=== PATIENT | male | born 1960 | race Caucasian/White ===

== ENCOUNTER 2017-02-04 16:22 | Inpatient (IN) | payer OTHER ==
[2017-02-04 17:41] VITALS: BMI 46.0
--- NOTE | 2017-02-04 19:55 | HP ---
Admission ROS [facility] - [facility] Chief Complaint: I WANT TO GO TO REHAB Allergies/Adverse Reactions: Allergies Allergy/AdvReac Type Severity Reaction Status Date / Time No Known Drug Allergies Allergy Verified 02/04/17 18:40 History of Present Illness: 56 YEARS OLD MALE WITH LONG HISTORY OF HEROIN NICOTINE DEPENDENCE HAS ASTHMA ON METHADONE 110 MG PO DAILY AND BIPOLAR II IS ADMITTED TO REHAB Exam Limitations: No Limitations - Ebola screening Have you traveled outside of the country in the last 21 days: No Have you had contact with anyone from an Ebola affected area: No Have you been sick,other than usual withdrawal symptoms: No Do you have a fever: No - Review of Systems Constitutional: No Symptoms Reported EENT: reports: Blurred Vision (EYE GLASSES) Respiratory: reports: No Symptoms reported Cardiac: reports: No Symptoms Reported GI: reports: Indigestion : reports: No Symptoms Reported Musculoskeletal: reports: No Symptoms Reported Integumentary: reports: No Symptoms Reported Neuro: reports: No Symptoms reported Endocrine: reports: No Symptoms Reported Hematology: reports: No Symptoms Reported Psychiatric: reports: Judgement Intact, Mood/Affect Appropiate, Orientated x3 Other Systems: Reviewed and Negative Patient History - Patient Medical History Hx Anemia: No Hx Asthma: Yes Hx Chronic Obstructive Pulmonary Disease (COPD): No Hx Cancer: No Hx Cardiac Disorders: No Hx Congestive Heart Failure: No Hx Hypertension: No Hx Hypercholesterolemia: No Hx Pacemaker: No HX Cerebrovascular Accident: No Hx Seizures: No Hx Dementia: No Hx Diabetes: No Hx Gastrointestinal Disorders: No Hx Liver Disease: No Hx Genitourinary Disorders: No Hx Sexually Transmitted Disorders: Yes (SYPHILLIS) Hx Renal Disease (ESRD): No Hx Thyroid Disease: No Hx Human Immunodeficiency Virus (HIV): No (last 03/29/13) Hx Hepatitis C: No Hx Depression: No Hx Suicide Attempt: Yes (2014 SELF) Hx Bipolar Disorder: Yes Hx Schizophrenia: No - Patient Surgical History Past Surgical History: Yes Hx Neurologic Surgery: No Hx Cataract Extraction: No Hx Cardiac Surgery: No Hx Lung Surgery: No Hx Breast Surgery: No Hx Breast Biopsy: No Hx Abdominal Surgery: No Hx Appendectomy: No Hx Cholecystectomy: No Hx Genitourinary Surgery: No Hx Orthopedic Surgery: Yes (s/p bilateral knee replacement ,ambulation witn cane ) Anesthesia Reaction: No - PPD History Previous Implant?: Yes Documented Results: Negative w/o proof Implanted On Prior R Admission?: Yes Date: 07/28/12 Results: negative PPD to be Administered?: Yes - Smoking Cessation Smoking history: Current every day smoker Have you smoked in the past 12 months: Yes Aproximately how many cigarettes per day: 20 Cigars Per Day: 0 Hx Chewing Tobacco Use: No Initiated information on smoking cessation: Yes 'Breaking Loose' booklet given: 02/04/17 - Substance & Tx. History Hx Alcohol Use: No Hx Substance Use: Yes Substance Use Type: Opiates Hx Substance Use Treatment: Yes (2013) - Substances Abused Heroin Route: Inhalation Frequency: 3-6 times per week Amount used: 10 BAGS Age of first use: 40 Date of Last Use: 02/03/17 Family Disease History - Family Disease History Family Disease History: Heart Disease: Mother, [place]: Father Admission Physical Exam BHS - Vital Signs Vital Signs: Vital Signs - 24 hr 02/04/17 17:39 Temperature 96.2 F L Pulse Rate 111 H Respiratory 18 Rate Blood Pressure 146/94 - Physical General Appearance: Yes: No Apparent Distress, Appropriately Dressed, Obese HEENTM: Yes: Hearing grossly Normal, Normal ENT Inspection, Normocephalic, Normal Voice Respiratory: Yes: No Respiratory Distress, No Accessory Muscle Use, Wheezing, Expiration Neck: Yes: Supple, Trachea in good position Breast: Yes: Breasts Symetrical Cardiology: Yes: Regular Rhythm, S1, S2, Tachycardia Abdominal: Yes: Non Tender, Soft, Decreased BS Genitourinary: Yes: Within Normal Limits Back: Yes: Normal Inspection Musculoskeletal: Yes: full range of Motion, Gait Steady Extremities: Yes: Normal Inspection, Normal Range of Motion, Non-Tender Neurological: Yes: Fully Oriented, Alert, Motor Strength 5/5, Normal Mood/Affect , Normal Response Integumentary: Yes: Warm Lymphatic: Yes: Within Normal Limits - Diagnostic (1) Opioid dependence with withdrawal Current Visit: Yes Status: Acute (2) GERD (gastroesophageal reflux disease) Current Visit: Yes Status: Chronic Qualifiers: Esophagitis presence: without esophagitis Qualified Code(s): K21.9 - Gastro -esophageal reflux disease without esophagitis (3) Constipation Current Visit: Yes Status: Chronic Qualifiers: Constipation type: slow transit constipation Qualified Code(s): K59.01 - Slow transit constipation (4) Asthma Current Visit: Yes Status: Chronic Qualifiers: Asthma severity: moderate Asthma complication type: with status asthmaticus (5) Methadone maintenance therapy patient Current Visit: Yes Status: Chronic Comment: 110 MG PO VERIFICATION PENDING Cleared for Admission [facility] - Detox or Rehab [facility] Level of Care: Observation Bed Detox Regimen/Protocol: Not Applicable Claeared for Rehab Admission: Yes [facility] Breath Alcohol Content Breath Alcohol Content: 0 Urine Drug Screen - Results Drug Screen Negative: No Urine Drug Screen Results: OPI-Opiates, MTD-Methadone Inpatient Rehab Admission - Initial Determination Are CD services needed?: Yes Free of communicable disease: Yes Not in need of hospitalization: Yes - Rehab Admission Criteria Previous failed treatment: Yes Poor recovery environment: Yes Comorbidities: Yes Lacks judgement: No Patient is meeting Inpatient Rehab admission criteria:: Yes
[2017-02-04] MEDS ORDERED: MAGNESIUM CITRATE 300 ML BOTTLE PO PRN (19:59)
[2017-02-04] MEDS ORDERED: NICOTINE POLACRILEX 4 MG GUM BC PRN (19:59)
[2017-02-04] MEDS ORDERED: LOPERAMIDE HCL 2 MG CAPSULE PO PRN (19:59)
[2017-02-04] MEDS ORDERED: P-EPHED 60MG/TRIPROLIDI 2.5MG TABLET PO PRN (19:59)
[2017-02-04] MEDS ORDERED: MAG HYDROX/AL HYDROX/SIMETH 30 ML UNIT-DOSE CUP PO PRN (19:59)
[2017-02-04] MEDS ORDERED: TUBERCULIN PPD 5 TU/0.1ML VIAL ID ONE (21:55)
[2017-02-04] MEDS: MONTELUKAST NA 10 MG TABLET PO SCH (22:02)
[2017-02-04] MEDS: SENNOSIDES 8.6MG TABLET (FP) PO SCH (22:02)
[2017-02-04] MEDS: ALBUTEROL SO4 18 GM HFA INHALER IH SCH ×2 (22:03→23:56)
[2017-02-04] MEDS: RANITIDINE HCL 150 MG TABLET (FP) PO SCH ×2 (22:03→22:09)
[2017-02-04] MEDS: THIAMINE HCL 100 MG TABLET (FP) PO SCH (22:03)
[2017-02-04] MEDS: BUDESONIDE/FORMETEROL FUMARATE 80/4.5 mcg INHALER IH SCH (22:04)
[2017-02-05] MEDS: ALBUTEROL SO4 18 GM HFA INHALER IH SCH ×6 (06:15→23:57)
[2017-02-05] MEDS ORDERED: METHADONE HCL 10 MG TABLET PO SCH (08:00)
[2017-02-05] MEDS ORDERED: METHADONE 80 MG, METHADONE 30 MG PO ONE (08:45)
[2017-02-05] MEDS ORDERED: METHADONE HCL 10 MG TABLET ONE (08:46)
[2017-02-05] MEDS ORDERED: METHADONE HCL 40 MG DISPERSABLE TABLET ONE (08:47)
[2017-02-05] MEDS: PRENATAL VITAMINS W/ FOLIC ACID TABLET (FP) PO SCH (09:02)
[2017-02-05] MEDS: BUDESONIDE/FORMETEROL FUMARATE 80/4.5 mcg INHALER IH SCH ×2 (09:02→21:43)
[2017-02-05] MEDS: RANITIDINE HCL 150 MG TABLET (FP) PO SCH ×2 (09:02→21:44)
[2017-02-05] MEDS: NICOTINE 21 MG/24 HOURS TOPICAL PATCH TD SCH (09:04)
[2017-02-05 10:12] LABS: PH,URINE 5.5 (5.0-8.0); URINE APPEARANCE CLEAR; URINE BILIRUBIN NEGATIVE (NEGATIVE); URINE BLOOD 2+ (NEGATIVE); URINE COLOR LT. YELLOW; URINE GLUCOSE (UA) NEGATIVE (NEGATIVE); URINE KETONE NEGATIVE (NEGATIVE); URINE NITRITE NEGATIVE (NEGATIVE); URINE PROTEIN NEGATIVE (NEGATIVE); URINE UROBILINOGEN 0.2 mg/dL (0.2-1.0)
[2017-02-05 10:34] LABS: URINE HYALINE CAST 1 /lpf; URINE MUCUS RARE; URINE WBC 3 /hpf (3-5)
--- NOTE | 2017-02-05 12:47 | EKG ---
Test Reason : Blood Pressure : / mmHG Vent. Rate : 101 BPM Atrial Rate : 101 BPM P-R Int : 144 ms QRS Dur : 106 ms QT Int : 366 ms P-R-T Axes : 055 -43 041 degrees QTc Int : 474 ms SINUS TACHYCARDIA LEFT AXIS DEVIATION INCOMPLETE RIGHT BUNDLE BRANCH BLOCK ABNORMAL ECG NO PREVIOUS ECGS AVAILABLE Confirmed by SG TELLO, RAMAN ([id number]) on 02/05/2017 12:46:25 PM Referred By: SHILPA JENKINS Confirmed By:RAMAN BETTENCOURT MD
[2017-02-05 13:41] LABS: MCH 22.4 pg (25.7-33.7); MCHC 30.9 g/dl (32.0-35.9); MEAN CELL VOLUME 72.6 fl (80-96); MEAN PLT VOLUME 7.6 fl (7.5-11.1); PLATELET COUNT 287 K/MM3 (134-434); RDW 15.9 % (11.9-15.9); WHITE BLOOD COUNT 10.5 K/mm3 (4.0-10.0)
[2017-02-05 13:50] LABS: ALBUMIN 2.9 g/dl (3.4-5.0); ALK PHOS 117 U/L (45-117); ANION GAP 10 (8-16); BILIRUBIN,TOTAL 0.2 mg/dL (0.2-1.0); CO2 29 mmol/L (21-32); CREATININE 0.9 mg/dL (0.7-1.3); GLUCOSE,RANDOM 107 mg/dL (74-106); SGOT/AST 14 U/L (15-37); SGPT/ALT 24 U/L (12-78); TOT PROT 6.3 g/dl (6.4-8.2)
[2017-02-05 18:29] LABS: URINE LEUK ESTERASE Negative (NEGATIVE)
[2017-02-05] MEDS: SENNOSIDES 8.6MG TABLET (FP) PO SCH (21:43)
[2017-02-05] MEDS: THIAMINE HCL 100 MG TABLET (FP) PO SCH (21:44)
[2017-02-05] MEDS: QUEtiapine FUMARATE 300 MG TABLET PO SCH (21:44)
[2017-02-05] MEDS: MONTELUKAST NA 10 MG TABLET PO SCH (21:44)
[2017-02-06] MEDS ORDERED: METHADONE HCL 10 MG TABLET ONE (04:03)
[2017-02-06] MEDS ORDERED: METHADONE HCL 40 MG DISPERSABLE TABLET ONE (04:03)
[2017-02-06] MEDS: ALBUTEROL SO4 18 GM HFA INHALER IH SCH ×3 (04:52→11:57)
[2017-02-06] MEDS: METHADONE 80 MG, METHADONE 30 MG PO SCH (06:21)
[2017-02-06] MEDS: BUDESONIDE/FORMETEROL FUMARATE 80/4.5 mcg INHALER IH SCH ×2 (09:43→21:50)
[2017-02-06] MEDS: PRENATAL VITAMINS W/ FOLIC ACID TABLET (FP) PO SCH (09:43)
[2017-02-06] MEDS: RANITIDINE HCL 150 MG TABLET (FP) PO SCH ×2 (09:43→21:49)
[2017-02-06] MEDS: NICOTINE 21 MG/24 HOURS TOPICAL PATCH TD SCH (09:44)
--- NOTE | 2017-02-06 12:06 | PN ---
[facility] Progress Note Note: Laboratory Tests 02/05/17 02/05/17 02/05/17 08:00 10:00 10:00 WBC 10.5 H D RBC 5.13 D Hgb 11.5 L D Hct 37.3 D MCV 72.6 L MCH 22.4 L MCHC 30.9 L RDW 15.9 Plt Count 287 MPV 7.6 Sodium 145 Potassium 4.3 Chloride 106 Carbon Dioxide 29 Anion Gap 10 BUN 16 Creatinine 0.9 D Creat Clearance w eGFR > 60 Random Glucose 107 H D Calcium 9.0 Total Bilirubin 0.2 AST 14 L D ALT 24 D Alkaline Phosphatase 117 Total Protein 6.3 L Albumin 2.9 L Urine Color Lt. yellow Urine Appearance Clear Urine pH 5.5 Ur Specific [place] 1.025 Urine Protein Negative Urine Glucose (UA) Negative Urine Ketones Negative Urine Blood 2+ H Urine Nitrite Negative Urine Bilirubin Negative Urine Urobilinogen 0.2 Ur Leukocyte Esterase Negative Urine WBC (Auto) 3 Urine RBC (Auto) None Ur Epithelial Cells Rare Hyaline Casts 1 Urine Mucus Rare RPR Titer T.pallidum Ab (A) 02/05/17 10:00 WBC RBC Hgb Hct MCV MCH MCHC RDW Plt Count MPV Sodium Potassium Chloride Carbon Dioxide Anion Gap BUN Creatinine Creat Clearance w eGFR Random Glucose Calcium Total Bilirubin AST ALT Alkaline Phosphatase Total Protein Albumin Urine Color Urine Appearance Urine pH Ur Specific [place] Urine Protein Urine Glucose (UA) Urine Ketones Urine Blood Urine Nitrite Urine Bilirubin Urine Urobilinogen Ur Leukocyte Esterase Urine WBC (Auto) Urine RBC (Auto) Ur Epithelial Cells Hyaline Casts Urine Mucus RPR Titer Reactive 1:1 H T.pallidum Ab (MHA) Previously reactive note lab abnl including + rpr previously tx anemia hematouria - repeat ua
--- NOTE | 2017-02-06 13:51 | HP ---
Psychiatrist Admission - Data Date of interview: 02/06/17 Admission source: [facility] Identifying data: This is the second inpatient rehabiltation admission for this 56 year old, male, father of 3, he lives in the [place] and supported by [facility]. Medical History: Asthma and Bilateral Knee Replacement. Smokes cigarettes 1/2 PPD.On MMTP 110 mg daily. Psychiatric History: Reports first psychiatric treatment in 1978 due to depression , reports about 6-7 psychiatric hospitalizations, states most hospitalizations at [facility], most recent 2 years ago, states was diagnosed as bipolar and schizophrenia. Sees the psychiatrist at [facility] clinic and currently on Seroquel 600 mg po hs and Ambien 10 mg p hs. He reports history of suicidal attempts as overdosing with drugs, states was long time ago when his left him. He admits to hear voices on and off calling his name. Physical/Sexual Abuse/Trauma History: Patient denies history of abuse. Vital Signs: Vital Signs - 24 hr 02/06/17 02/06/17 02/06/17 00:30 03:30 06:42 Temperature 98.7 F Pulse Rate 104 H Respiratory 20 20 20 Rate Blood Pressure 108/95 Allergies/Adverse Reactions: Allergies Allergy/AdvReac Type Severity Reaction Status Date / Time No Known Drug Allergies Allergy Verified 02/04/17 18:40 Date of last physical exam: 02/04/17 Concur with the findings of this exam: Yes - Substance Abuse/Tx History Hx Alcohol Use: No Hx Substance Use: Yes Substance Use Type: Heroin (2-3 bags a day) Hx Substance Use Treatment: Yes ([facility], [facility]) Mental Status Exam - Mental Status Exam Alert and Oriented to: Time, Place, Person Cognitive Function: Good Patient Appearance: Well Groomed Mood: Hopeful Affect: Appropriate, Mood Congruent Patient Behavior: Appropriate, Cooperative Speech Pattern: Clear, Appropriate Voice Loudness: Normal Thought Process: Intact Thought Disorder: Not Present Hallucinations: Denies Suicidal Ideation: Denies Homicidal Ideation: Denies Insight/Judgement: Fair Sleep: Fair Appetite: Fair Muscle strength/Tone: Normal Psychiatric Findings - Problem List ([place] 1, 2,3) (1) Nicotine dependence Current Visit: Yes Status: Acute (2) Asthma Current Visit: Yes Status: Chronic Qualifiers: Asthma severity: moderate Asthma complication type: with status asthmaticus (3) History of total knee replacement Current Visit: No Status: Acute (4) Opioid dependence Current Visit: No Status: Acute (5) Schizoaffective disorder Current Visit: No Status: Acute - Initial Treatment Plan Initial Treatment Plan: Will continue Seroquel, will add Belsomra 10 mg po hs( side-effects benefits discussed). Monitor progress as neeed.
[2017-02-06] MEDS: ALBUTEROL SO4 18 GM HFA INHALER IH PRN (19:47)
[2017-02-06] MEDS: THIAMINE HCL 100 MG TABLET (FP) PO SCH (21:49)
[2017-02-06] MEDS: QUEtiapine FUMARATE 300 MG TABLET PO SCH (21:49)
[2017-02-06] MEDS: MONTELUKAST NA 10 MG TABLET PO SCH (21:49)
[2017-02-06] MEDS: SENNOSIDES 8.6MG TABLET (FP) PO SCH (21:49)
[2017-02-06] MEDS: SUVOREXANT 10 MG TABLET PO SCH (21:49)
[2017-02-07] MEDS ORDERED: METHADONE HCL 40 MG DISPERSABLE TABLET ONE (04:31)
[2017-02-07] MEDS ORDERED: METHADONE HCL 10 MG TABLET ONE (04:31)
[2017-02-07] MEDS: METHADONE 80 MG, METHADONE 30 MG PO SCH (06:05)
[2017-02-07] MEDS: MENTHOL/PHENOL 1 EACH UD MM PRN (06:06)
[2017-02-07] MEDS: ALBUTEROL SO4 18 GM HFA INHALER IH PRN (07:27)
[2017-02-07] MEDS: RANITIDINE HCL 150 MG TABLET (FP) PO SCH ×2 (10:13→21:30)
[2017-02-07] MEDS: PRENATAL VITAMINS W/ FOLIC ACID TABLET (FP) PO SCH (10:13)
[2017-02-07] MEDS: BUDESONIDE/FORMETEROL FUMARATE 80/4.5 mcg INHALER IH SCH ×2 (10:14→21:31)
[2017-02-07] MEDS: NICOTINE 21 MG/24 HOURS TOPICAL PATCH TD SCH (10:14)
[2017-02-07] MEDS: MAGNESIUM HYDROX 2400MG/30ML ORAL SUSPENSION 30 ML CUP PO PRN (10:16)
--- NOTE | 2017-02-07 14:50 | PN ---
[facility] Progress Note Note: c/o sore throat pt. has asthma & breath through his mouth. Vital Signs - 8 hr 02/07/17 06:59 Temperature 98.6 F Pulse Rate 98 H Respiratory 20 Rate Blood Pressure 112/65 Laboratory Tests 02/05/17 02/05/17 02/05/17 08:00 10:00 10:00 WBC 10.5 H D RBC 5.13 D Hgb 11.5 L D Hct 37.3 D MCV 72.6 L MCH 22.4 L MCHC 30.9 L RDW 15.9 Plt Count 287 MPV 7.6 Sodium 145 Potassium 4.3 Chloride 106 Carbon Dioxide 29 Anion Gap 10 BUN 16 Creatinine 0.9 D Creat Clearance w eGFR > 60 Random Glucose 107 H D Calcium 9.0 Total Bilirubin 0.2 AST 14 L D ALT 24 D Alkaline Phosphatase 117 Total Protein 6.3 L Albumin 2.9 L Urine Color Lt. yellow Urine Appearance Clear Urine pH 5.5 Ur Specific [place] 1.025 Urine Protein Negative Urine Glucose (UA) Negative Urine Ketones Negative Urine Blood 2+ H Urine Nitrite Negative Urine Bilirubin Negative Urine Urobilinogen 0.2 Ur Leukocyte Esterase Negative Urine WBC (Auto) 3 Urine RBC (Auto) None Ur Epithelial Cells Rare Hyaline Casts 1 Urine Mucus Rare RPR Titer T.pallidum Ab (MHA) 02/05/17 10:00 WBC RBC Hgb Hct MCV MCH MCHC RDW Plt Count MPV Sodium Potassium Chloride Carbon Dioxide Anion Gap BUN Creatinine Creat Clearance w eGFR Random Glucose Calcium Total Bilirubin AST ALT Alkaline Phosphatase Total Protein Albumin Urine Color Urine Appearance Urine pH Ur Specific [place] Urine Protein Urine Glucose (UA) Urine Ketones Urine Blood Urine Nitrite Urine Bilirubin Urine Urobilinogen Ur Leukocyte Esterase Urine WBC (Auto) Urine RBC (Auto) Ur Epithelial Cells Hyaline Casts Urine Mucus RPR Titer Reactive 1:1 H T.pallidum Ab (MHA) Previously reactive Lungs : B/L expiratory wheezing Dx. : Asthma P : Duoned nebulizer
[2017-02-07] MEDS: ALBUTEROL SO4 2.5/IPRATROPIUM 0.5 INH SOL 3 ML VIAL.NEB. NEB PRN (15:21)
[2017-02-07] MEDS: SENNOSIDES 8.6MG TABLET (FP) PO SCH (21:30)
[2017-02-07] MEDS: THIAMINE HCL 100 MG TABLET (FP) PO SCH (21:30)
[2017-02-07] MEDS: SUVOREXANT 10 MG TABLET PO SCH (21:30)
[2017-02-07] MEDS: MONTELUKAST NA 10 MG TABLET PO SCH (21:30)
[2017-02-07] MEDS: QUEtiapine FUMARATE 300 MG TABLET PO SCH (21:32)
[2017-02-07] MEDS: ALBUTEROL SO4 2.5/IPRATROPIUM 0.5 INH SOL 3 ML VIAL.NEB. NEB SCH (21:32)
[2017-02-07] MEDS: ACETAMINOPHEN 325 MG TABLET (FP) PO PRN (23:59)
[2017-02-08] MEDS: ACETAMINOPHEN 325 MG TABLET (FP) PO PRN ×2 (05:00→09:57)
[2017-02-08] MEDS ORDERED: METHADONE HCL 40 MG DISPERSABLE TABLET ONE (05:34)
[2017-02-08] MEDS ORDERED: METHADONE HCL 10 MG TABLET ONE (05:34)
[2017-02-08] MEDS: METHADONE 80 MG, METHADONE 30 MG PO SCH (06:20)
[2017-02-08] MEDS: ALBUTEROL SO4 2.5/IPRATROPIUM 0.5 INH SOL 3 ML VIAL.NEB. NEB SCH ×3 (09:56→23:40)
[2017-02-08] MEDS: RANITIDINE HCL 150 MG TABLET (FP) PO SCH ×2 (09:56→21:37)
[2017-02-08] MEDS: BUDESONIDE/FORMETEROL FUMARATE 80/4.5 mcg INHALER IH SCH ×2 (09:56→23:41)
[2017-02-08] MEDS: PRENATAL VITAMINS W/ FOLIC ACID TABLET (FP) PO SCH (09:56)
[2017-02-08] MEDS: NICOTINE 21 MG/24 HOURS TOPICAL PATCH TD SCH (09:56)
[2017-02-08] MEDS: MENTHOL/PHENOL 1 EACH UD MM PRN (09:58)
[2017-02-08] MEDS: NAPROXEN 500 MG TABLET (FP) PO PRN (16:00)
[2017-02-08] MEDS: SUVOREXANT 10 MG TABLET PO SCH (21:35)
[2017-02-08] MEDS: MONTELUKAST NA 10 MG TABLET PO SCH (21:36)
[2017-02-08] MEDS: SENNOSIDES 8.6MG TABLET (FP) PO SCH (21:36)
[2017-02-08] MEDS: QUEtiapine FUMARATE 300 MG TABLET PO SCH (21:37)
[2017-02-08] MEDS: THIAMINE HCL 100 MG TABLET (FP) PO SCH (21:37)
[2017-02-09] MEDS ORDERED: METHADONE HCL 10 MG TABLET ONE (03:55)
[2017-02-09] MEDS ORDERED: METHADONE HCL 40 MG DISPERSABLE TABLET ONE (03:55)
[2017-02-09] MEDS: METHADONE 80 MG, METHADONE 30 MG PO SCH (06:18)
[2017-02-09] MEDS: BUDESONIDE/FORMETEROL FUMARATE 80/4.5 mcg INHALER IH SCH ×2 (10:13→22:13)
[2017-02-09] MEDS: PRENATAL VITAMINS W/ FOLIC ACID TABLET (FP) PO SCH (10:14)
[2017-02-09] MEDS: NICOTINE 21 MG/24 HOURS TOPICAL PATCH TD SCH (10:14)
[2017-02-09] MEDS: RANITIDINE HCL 150 MG TABLET (FP) PO SCH ×2 (10:14→22:15)
[2017-02-09] MEDS: ALBUTEROL SO4 2.5/IPRATROPIUM 0.5 INH SOL 3 ML VIAL.NEB. NEB SCH ×4 (10:14→22:14)
[2017-02-09] MEDS: ALBUTEROL SO4 18 GM HFA INHALER IH PRN ×2 (10:15→22:13)
[2017-02-09] MEDS: ACETAMINOPHEN 325 MG TABLET (FP) PO PRN (16:59)
[2017-02-09] MEDS: SENNOSIDES 8.6MG TABLET (FP) PO SCH (22:14)
[2017-02-09] MEDS: MONTELUKAST NA 10 MG TABLET PO SCH (22:14)
[2017-02-09] MEDS: THIAMINE HCL 100 MG TABLET (FP) PO SCH (22:14)
[2017-02-09] MEDS: SUVOREXANT 10 MG TABLET PO SCH (22:14)
[2017-02-09] MEDS: QUEtiapine FUMARATE 300 MG TABLET PO SCH (22:14)
[2017-02-10] MEDS: ALBUTEROL SO4 2.5/IPRATROPIUM 0.5 INH SOL 3 ML VIAL.NEB. NEB PRN (00:25)
[2017-02-10] MEDS ORDERED: METHADONE HCL 40 MG DISPERSABLE TABLET ONE (04:12)
[2017-02-10] MEDS ORDERED: METHADONE HCL 10 MG TABLET ONE (04:12)
[2017-02-10] MEDS: METHADONE 80 MG, METHADONE 30 MG PO SCH (06:11)
[2017-02-10] MEDS: ACETAMINOPHEN 325 MG TABLET (FP) PO PRN (07:36)
[2017-02-10] MEDS: PRENATAL VITAMINS W/ FOLIC ACID TABLET (FP) PO SCH (10:11)
[2017-02-10] MEDS: RANITIDINE HCL 150 MG TABLET (FP) PO SCH ×2 (10:11→21:48)
[2017-02-10] MEDS: NICOTINE 21 MG/24 HOURS TOPICAL PATCH TD SCH (10:11)
[2017-02-10] MEDS: BUDESONIDE/FORMETEROL FUMARATE 80/4.5 mcg INHALER IH SCH ×2 (10:12→21:48)
[2017-02-10] MEDS: ALBUTEROL SO4 2.5/IPRATROPIUM 0.5 INH SOL 3 ML VIAL.NEB. NEB SCH ×4 (10:12→21:49)
[2017-02-10] MEDS: NAPROXEN 500 MG TABLET (FP) PO PRN (10:13)
[2017-02-10] MEDS: MAG HYDROX/ALH/SMC/DPHA/LIDO 240 ML MOUTHWASH MM SCH ×2 (14:35→17:40)
[2017-02-10] MEDS: SENNOSIDES 8.6MG TABLET (FP) PO SCH (21:48)
[2017-02-10] MEDS: MONTELUKAST NA 10 MG TABLET PO SCH (21:48)
[2017-02-10] MEDS: THIAMINE HCL 100 MG TABLET (FP) PO SCH (21:48)
[2017-02-10] MEDS: SUVOREXANT 10 MG TABLET PO SCH (21:50)
[2017-02-10] MEDS: QUEtiapine FUMARATE 300 MG TABLET PO SCH (21:51)
[2017-02-11] MEDS: ALBUTEROL SO4 2.5/IPRATROPIUM 0.5 INH SOL 3 ML VIAL.NEB. NEB PRN (02:33)
[2017-02-11] MEDS ORDERED: METHADONE HCL 10 MG TABLET ONE (04:15)
[2017-02-11] MEDS ORDERED: METHADONE HCL 40 MG DISPERSABLE TABLET ONE (04:15)
[2017-02-11] MEDS: METHADONE 80 MG, METHADONE 30 MG PO SCH (05:52)
[2017-02-11] MEDS: MAG HYDROX/ALH/SMC/DPHA/LIDO 240 ML MOUTHWASH MM SCH ×5 (05:53→23:57)
[2017-02-11] MEDS: BUDESONIDE/FORMETEROL FUMARATE 80/4.5 mcg INHALER IH SCH ×2 (10:24→22:01)
[2017-02-11] MEDS: RANITIDINE HCL 150 MG TABLET (FP) PO SCH ×2 (10:24→21:59)
[2017-02-11] MEDS: PRENATAL VITAMINS W/ FOLIC ACID TABLET (FP) PO SCH (10:24)
[2017-02-11] MEDS: NICOTINE 21 MG/24 HOURS TOPICAL PATCH TD SCH (10:24)
[2017-02-11] MEDS: ALBUTEROL SO4 18 GM HFA INHALER IH PRN (10:25)
[2017-02-11] MEDS: MAGNESIUM HYDROX 2400MG/30ML ORAL SUSPENSION 30 ML CUP PO PRN (10:27)
[2017-02-11] MEDS: ALBUTEROL SO4 2.5/IPRATROPIUM 0.5 INH SOL 3 ML VIAL.NEB. NEB SCH ×4 (10:27→22:00)
[2017-02-11] MEDS: SUVOREXANT 10 MG TABLET PO SCH (21:59)
[2017-02-11] MEDS: SENNOSIDES 8.6MG TABLET (FP) PO SCH (21:59)
[2017-02-11] MEDS: THIAMINE HCL 100 MG TABLET (FP) PO SCH (21:59)
[2017-02-11] MEDS: MONTELUKAST NA 10 MG TABLET PO SCH (21:59)
[2017-02-11] MEDS: QUEtiapine FUMARATE 300 MG TABLET PO SCH (22:00)
[2017-02-12] MEDS ORDERED: METHADONE HCL 40 MG DISPERSABLE TABLET ONE (04:03)
[2017-02-12] MEDS ORDERED: METHADONE HCL 10 MG TABLET ONE (04:03)
[2017-02-12] MEDS: METHADONE 80 MG, METHADONE 30 MG PO SCH (05:58)
[2017-02-12] MEDS: MAG HYDROX/ALH/SMC/DPHA/LIDO 240 ML MOUTHWASH MM SCH ×4 (05:58→23:54)
[2017-02-12] MEDS: ACETAMINOPHEN 325 MG TABLET (FP) PO PRN (06:00)
[2017-02-12] MEDS: PRENATAL VITAMINS W/ FOLIC ACID TABLET (FP) PO SCH (10:17)
[2017-02-12] MEDS: RANITIDINE HCL 150 MG TABLET (FP) PO SCH ×2 (10:17→21:59)
[2017-02-12] MEDS: NICOTINE 21 MG/24 HOURS TOPICAL PATCH TD SCH (10:17)
[2017-02-12] MEDS: BUDESONIDE/FORMETEROL FUMARATE 80/4.5 mcg INHALER IH SCH ×2 (10:17→21:58)
[2017-02-12] MEDS: ALBUTEROL SO4 2.5/IPRATROPIUM 0.5 INH SOL 3 ML VIAL.NEB. NEB SCH ×2 (10:18→22:00)
[2017-02-12] MEDS: ALBUTEROL SO4 18 GM HFA INHALER IH PRN (10:18)
[2017-02-12] MEDS: THIAMINE HCL 100 MG TABLET (FP) PO SCH (21:59)
[2017-02-12] MEDS: SUVOREXANT 10 MG TABLET PO SCH (21:59)
[2017-02-12] MEDS: MONTELUKAST NA 10 MG TABLET PO SCH (21:59)
[2017-02-12] MEDS: SENNOSIDES 8.6MG TABLET (FP) PO SCH (21:59)
[2017-02-12] MEDS: QUEtiapine FUMARATE 300 MG TABLET PO SCH (22:00)
[2017-02-13] MEDS ORDERED: METHADONE HCL 40 MG DISPERSABLE TABLET ONE (02:58)
[2017-02-13] MEDS ORDERED: METHADONE HCL 10 MG TABLET ONE (02:58)
[2017-02-13] MEDS: METHADONE 80 MG, METHADONE 30 MG PO SCH (06:16)
[2017-02-13] MEDS: MAGNESIUM HYDROX 2400MG/30ML ORAL SUSPENSION 30 ML CUP PO PRN ×2 (06:34→14:06)
[2017-02-13] MEDS: MAG HYDROX/ALH/SMC/DPHA/LIDO 240 ML MOUTHWASH MM SCH ×3 (06:36→17:56)
[2017-02-13] MEDS: BUDESONIDE/FORMETEROL FUMARATE 80/4.5 mcg INHALER IH SCH ×2 (10:17→22:15)
[2017-02-13] MEDS: NICOTINE 21 MG/24 HOURS TOPICAL PATCH TD SCH (10:17)
[2017-02-13] MEDS: RANITIDINE HCL 150 MG TABLET (FP) PO SCH ×2 (10:17→22:16)
[2017-02-13] MEDS: PRENATAL VITAMINS W/ FOLIC ACID TABLET (FP) PO SCH (10:17)
[2017-02-13] MEDS: ACETAMINOPHEN 325 MG TABLET (FP) PO PRN (19:39)
[2017-02-13] MEDS ORDERED: SUVOREXANT 10 MG TABLET PO PRN (19:47)
[2017-02-13] MEDS: QUEtiapine FUMARATE 300 MG TABLET PO SCH (22:16)
[2017-02-13] MEDS: MONTELUKAST NA 10 MG TABLET PO SCH (22:16)
[2017-02-13] MEDS: THIAMINE HCL 100 MG TABLET (FP) PO SCH (22:16)
[2017-02-13] MEDS: SENNOSIDES 8.6MG TABLET (FP) PO SCH (22:16)
[2017-02-14] MEDS ORDERED: METHADONE HCL 40 MG DISPERSABLE TABLET ONE (04:58)
[2017-02-14] MEDS ORDERED: METHADONE HCL 10 MG TABLET ONE (04:58)
[2017-02-14] MEDS: MAG HYDROX/ALH/SMC/DPHA/LIDO 240 ML MOUTHWASH MM SCH ×5 (06:05→23:44)
[2017-02-14] MEDS: METHADONE 80 MG, METHADONE 30 MG PO SCH (06:05)
[2017-02-14] MEDS: PRENATAL VITAMINS W/ FOLIC ACID TABLET (FP) PO SCH (09:55)
[2017-02-14] MEDS: RANITIDINE HCL 150 MG TABLET (FP) PO SCH ×2 (09:55→21:57)
[2017-02-14] MEDS: NICOTINE 21 MG/24 HOURS TOPICAL PATCH TD SCH (09:56)
[2017-02-14] MEDS: BUDESONIDE/FORMETEROL FUMARATE 80/4.5 mcg INHALER IH SCH ×2 (09:56→21:56)
[2017-02-14] MEDS: ALBUTEROL SO4 18 GM HFA INHALER IH PRN (09:57)
[2017-02-14] MEDS: NAPROXEN 500 MG TABLET (FP) PO PRN (11:40)
--- NOTE | 2017-02-14 13:41 | PN ---
S Progress Note (SOAP) Subjective: stil c/o sore throat, with coughm,, congestion and phlegm production Objective: 02/14/17 13:38 Vital Signs - 24 hr 02/14/17 02/14/17 02/14/17 03:30 07:06 10:00 Temperature 98.5 F Pulse Rate 81 81 Respiratory 20 18 18 Rate Blood Pressure 117/76 142/70 afeb, no fever rigors or chils reported, mild erythema throat, no LN Laboratory Tests 02/05/17 02/05/17 02/05/17 08:00 10:00 10:00 WBC 10.5 H D RBC 5.13 D Hgb 11.5 L D Hct 37.3 D MCV 72.6 L MCH 22.4 L MCHC 30.9 L RDW 15.9 Plt Count 287 MPV 7.6 Sodium 145 Potassium 4.3 Chloride 106 Carbon Dioxide 29 Anion Gap 10 BUN 16 Creatinine 0.9 D Creat Clearance w eGFR > 60 Random Glucose 107 H D Calcium 9.0 Total Bilirubin 0.2 AST 14 L D ALT 24 D Alkaline Phosphatase 117 Total Protein 6.3 L Albumin 2.9 L Urine Color Lt. yellow Urine Appearance Clear Urine pH 5.5 Ur Specific [place] 1.025 Urine Protein Negative Urine Glucose (UA) Negative Urine Ketones Negative Urine Blood 2+ H Urine Nitrite Negative Urine Bilirubin Negative Urine Urobilinogen 0.2 Ur Leukocyte Esterase Negative Urine WBC (Auto) 3 Urine RBC (Auto) None Ur Epithelial Cells Rare Hyaline Casts 1 Urine Mucus Rare RPR Titer T.pallidum Ab (MHA) 02/05/17 10:00 WBC RBC Hgb Hct MCV MCH MCHC RDW Plt Count MPV Sodium Potassium Chloride Carbon Dioxide Anion Gap BUN Creatinine Creat Clearance w eGFR Random Glucose Calcium Total Bilirubin AST ALT Alkaline Phosphatase Total Protein Albumin Urine Color Urine Appearance Urine pH Ur Specific [place] Urine Protein Urine Glucose (UA) Urine Ketones Urine Blood Urine Nitrite Urine Bilirubin Urine Urobilinogen Ur Leukocyte Esterase Urine WBC (Auto) Urine RBC (Auto) Ur Epithelial Cells Hyaline Casts Urine Mucus RPR Titer Reactive 1:1 H T.pallidum Ab (MHA) Previously reactive =ve syphoilis old patint reports being treated in past, microcytic anemia, hypalbuminemia Assessment: 02/14/17 13:40 thraot culture +ve strep agalactiae - pateint requesting antibioitcs will start amoxicilliin x1 week, cont magic mouthwash, iron pills, colace. f/u PCP for medical care when discharged
[2017-02-14] MEDS: AMOXICILLIN 500 MG CAPSULE (FP) PO SCH ×2 (15:05→21:56)
[2017-02-14] MEDS: FERROUS SO4 325 MG TABLET (FP) PO SCH (17:05)
[2017-02-14] MEDS: THIAMINE HCL 100 MG TABLET (FP) PO SCH (21:56)
[2017-02-14] MEDS: QUEtiapine FUMARATE 300 MG TABLET PO SCH (21:56)
[2017-02-14] MEDS: SENNOSIDES 8.6MG TABLET (FP) PO SCH (21:56)
[2017-02-14] MEDS: MONTELUKAST NA 10 MG TABLET PO SCH (21:57)
[2017-02-14] MEDS: DOCUSATE SODIUM 100 MG CAPSULE (FP) PO SCH (21:57)
[2017-02-15] MEDS ORDERED: METHADONE HCL 40 MG DISPERSABLE TABLET ONE (04:17)
[2017-02-15] MEDS ORDERED: METHADONE HCL 10 MG TABLET ONE (04:17)
[2017-02-15] MEDS: METHADONE 80 MG, METHADONE 30 MG PO SCH (06:29)
[2017-02-15] MEDS: MAG HYDROX/ALH/SMC/DPHA/LIDO 240 ML MOUTHWASH MM SCH ×4 (06:30→23:50)
[2017-02-15] MEDS: AMOXICILLIN 500 MG CAPSULE (FP) PO SCH ×3 (06:30→22:02)
[2017-02-15] MEDS: FERROUS SO4 325 MG TABLET (FP) PO SCH ×3 (07:16→17:33)
[2017-02-15] MEDS: PRENATAL VITAMINS W/ FOLIC ACID TABLET (FP) PO SCH (10:12)
[2017-02-15] MEDS: NICOTINE 21 MG/24 HOURS TOPICAL PATCH TD SCH (10:12)
[2017-02-15] MEDS: RANITIDINE HCL 150 MG TABLET (FP) PO SCH ×2 (10:12→22:02)
[2017-02-15] MEDS: ALBUTEROL SO4 18 GM HFA INHALER IH PRN (10:13)
[2017-02-15] MEDS: BUDESONIDE/FORMETEROL FUMARATE 80/4.5 mcg INHALER IH SCH ×2 (10:13→22:01)
[2017-02-15] MEDS: DOCUSATE SODIUM 100 MG CAPSULE (FP) PO SCH (22:01)
[2017-02-15] MEDS: MONTELUKAST NA 10 MG TABLET PO SCH (22:01)
[2017-02-15] MEDS: SENNOSIDES 8.6MG TABLET (FP) PO SCH (22:02)
[2017-02-15] MEDS: QUEtiapine FUMARATE 300 MG TABLET PO SCH (22:02)
[2017-02-15] MEDS: THIAMINE HCL 100 MG TABLET (FP) PO SCH (22:02)
[2017-02-16] MEDS ORDERED: METHADONE HCL 10 MG TABLET ONE (04:11)
[2017-02-16] MEDS ORDERED: METHADONE HCL 40 MG DISPERSABLE TABLET ONE (04:12)
[2017-02-16] MEDS: METHADONE 80 MG, METHADONE 30 MG PO SCH (06:10)
[2017-02-16] MEDS: AMOXICILLIN 500 MG CAPSULE (FP) PO SCH ×3 (06:10→21:49)
[2017-02-16] MEDS: MAG HYDROX/ALH/SMC/DPHA/LIDO 240 ML MOUTHWASH MM SCH ×4 (06:11→23:02)
[2017-02-16] MEDS: FERROUS SO4 325 MG TABLET (FP) PO SCH ×3 (07:12→17:01)
[2017-02-16] MEDS: BUDESONIDE/FORMETEROL FUMARATE 80/4.5 mcg INHALER IH SCH ×2 (10:16→21:48)
[2017-02-16] MEDS: RANITIDINE HCL 150 MG TABLET (FP) PO SCH ×2 (10:17→21:49)
[2017-02-16] MEDS: PRENATAL VITAMINS W/ FOLIC ACID TABLET (FP) PO SCH (10:17)
[2017-02-16] MEDS: NICOTINE 21 MG/24 HOURS TOPICAL PATCH TD SCH (10:18)
[2017-02-16] MEDS ORDERED: SUVOREXANT 10 MG TABLET PO PRN (13:07)
[2017-02-16] MEDS: ALBUTEROL SO4 18 GM HFA INHALER IH PRN (14:23)
[2017-02-16] MEDS: THIAMINE HCL 100 MG TABLET (FP) PO SCH (21:48)
[2017-02-16] MEDS: DOCUSATE SODIUM 100 MG CAPSULE (FP) PO SCH (21:48)
[2017-02-16] MEDS: MONTELUKAST NA 10 MG TABLET PO SCH (21:49)
[2017-02-16] MEDS: SENNOSIDES 8.6MG TABLET (FP) PO SCH (21:49)
[2017-02-16] MEDS: QUEtiapine FUMARATE 300 MG TABLET PO SCH (21:49)
[2017-02-17] MEDS ORDERED: METHADONE HCL 40 MG DISPERSABLE TABLET ONE (03:23)
[2017-02-17] MEDS ORDERED: METHADONE HCL 10 MG TABLET ONE (03:23)
[2017-02-17] MEDS: METHADONE 80 MG, METHADONE 30 MG PO SCH (06:52)
[2017-02-17] MEDS: AMOXICILLIN 500 MG CAPSULE (FP) PO SCH ×3 (06:53→21:33)
[2017-02-17] MEDS: MAG HYDROX/ALH/SMC/DPHA/LIDO 240 ML MOUTHWASH MM SCH ×3 (06:55→17:04)
[2017-02-17] MEDS: FERROUS SO4 325 MG TABLET (FP) PO SCH ×3 (07:03→17:04)
[2017-02-17] MEDS: RANITIDINE HCL 150 MG TABLET (FP) PO SCH ×2 (10:18→21:34)
[2017-02-17] MEDS: BUDESONIDE/FORMETEROL FUMARATE 80/4.5 mcg INHALER IH SCH ×2 (10:18→21:33)
[2017-02-17] MEDS: NICOTINE 21 MG/24 HOURS TOPICAL PATCH TD SCH (10:18)
[2017-02-17] MEDS: PRENATAL VITAMINS W/ FOLIC ACID TABLET (FP) PO SCH (10:18)
[2017-02-17] MEDS: ALBUTEROL SO4 18 GM HFA INHALER IH PRN (12:56)
[2017-02-17] MEDS: ALBUTEROL SO4 2.5/IPRATROPIUM 0.5 INH SOL 3 ML VIAL.NEB. NEB PRN (14:42)
[2017-02-17] MEDS: MONTELUKAST NA 10 MG TABLET PO SCH (21:33)
[2017-02-17] MEDS: QUEtiapine FUMARATE 300 MG TABLET PO SCH (21:33)
[2017-02-17] MEDS: SENNOSIDES 8.6MG TABLET (FP) PO SCH (21:33)
[2017-02-17] MEDS: DOCUSATE SODIUM 100 MG CAPSULE (FP) PO SCH (21:33)
[2017-02-17] MEDS: THIAMINE HCL 100 MG TABLET (FP) PO SCH (21:35)
[2017-02-18] MEDS: MAG HYDROX/ALH/SMC/DPHA/LIDO 240 ML MOUTHWASH MM SCH ×4 (00:01→18:44)
[2017-02-18] MEDS: ALBUTEROL SO4 2.5/IPRATROPIUM 0.5 INH SOL 3 ML VIAL.NEB. NEB PRN (00:23)
[2017-02-18] MEDS ORDERED: METHADONE HCL 40 MG DISPERSABLE TABLET ONE (04:20)
[2017-02-18] MEDS ORDERED: METHADONE HCL 10 MG TABLET ONE (04:20)
[2017-02-18] MEDS: METHADONE 80 MG, METHADONE 30 MG PO SCH (05:57)
[2017-02-18] MEDS: AMOXICILLIN 500 MG CAPSULE (FP) PO SCH ×3 (05:57→21:41)
[2017-02-18] MEDS: FERROUS SO4 325 MG TABLET (FP) PO SCH ×3 (07:21→17:40)
[2017-02-18] MEDS: PRENATAL VITAMINS W/ FOLIC ACID TABLET (FP) PO SCH (10:17)
[2017-02-18] MEDS: RANITIDINE HCL 150 MG TABLET (FP) PO SCH ×2 (10:17→21:42)
[2017-02-18] MEDS: BUDESONIDE/FORMETEROL FUMARATE 80/4.5 mcg INHALER IH SCH ×2 (10:17→21:42)
[2017-02-18] MEDS: NICOTINE 21 MG/24 HOURS TOPICAL PATCH TD SCH (10:18)
--- NOTE | 2017-02-18 10:41 | PN ---
Psychiatric Progress Note Vital Signs: Vital Signs Period Temp Pulse Resp BP Sys/Powell Pulse Ox Last 24 Hr 98.5 F 86 20-20 122/77 Date of Session: 02/18/17 Chief Complaint:: I've been refusing to take Seroquel 600 mg nightly due to drowsiness HPI: Patient addressing Opoid Dependence comorbid with Nicotine Dependence and Schizoaffective Disorder ROS: Asthma; History of total knee replacement Current Medications: Active Medications Generic Name Dose Route Start Last Admin Trade Name Freq PRN Reason Stop Dose Admin Acetaminophen 650 mg 02/04/17 19:59 02/13/17 19:39 Tylenol - PO 650 mg Q4H PRN Administration PAIN Al Hydroxide/Mg Hydroxide 30 ml 02/04/17 19:59 Mylanta Oral Suspension - PO Q6H PRN DYSPEPSIA Albuterol Sulfate 2 puff 02/06/17 12:23 02/17/17 12:56 Ventolin Hfa Inhaler - IH 2 puff Q4H PRN Administration ASTHMA Albuterol/Ipratropium 1 amp 02/14/17 07:33 02/18/17 00:23 Duoneb - NEB 1 amp Q4H PRN Administration SHORTNESS OF BREATH Amoxicillin 500 mg 02/14/17 14:00 02/18/17 05:57 Amoxicillin - PO 500 mg TID MARYLIN Administration Budesonide/Formoterol Fumarate 1 puff 02/04/17 22:00 02/18/17 10:17 Symbicort 80/4.5mcg - IH 1 puff BID MARYLIN Administration Docusate Sodium 300 mg 02/14/17 22:00 02/17/17 21:33 Colace - PO 300 mg HS MARYLIN Administration Eucalyptus/Menthol/Phenol/Sorbitol 1 each 02/04/17 19:59 02/08/17 09:58 Cepastat Lozenge - MM 1 each Q4H PRN Administration SORE THROAT Ferrous Sulfate 325 mg 02/14/17 17:30 02/18/17 07:21 Feosol - PO 325 mg TIDCM MARYLIN Administration Guaifenesin 10 ml 02/04/17 19:59 Robitussin Dm - PO Q6H PRN COUGH Lidocaine/Aluminum/Magnesium/Simeth 5 ml 02/10/17 12:35 02/18/17 05:57 Magic Mouthwash *Sjr Formula* - MM 5 ml Q6HPO MARYLIN Administration Loperamide HCl 4 mg 02/04/17 19:59 Imodium - PO Q6H PRN DIARRHEA Magnesium Citrate 300 ml 02/04/17 19:59 Citroma - PO Q48H PRN CONSTIPATION Magnesium Hydroxide 30 ml 02/04/17 19:59 02/13/17 14:06 Milk Of Magnesia - PO 30 ml DAILY PRN Administration CONSTIPATION Methadone HCl 80 mg/ Methadone 110 mg 02/19/17 06:00 HCl 30 mg PO 02/26/17 05:59 DAILY@0600 MARYLIN Montelukast Sodium 10 mg 02/04/17 22:00 02/17/17 21:33 Singulair - PO 10 mg HS MARYLIN Administration Naproxen 500 mg 02/04/17 20:05 02/14/17 11:40 Naprosyn - PO 500 mg BID PRN Administration BACK PAIN Nicotine 21 mg 02/05/17 10:00 02/18/17 10:18 Nicoderm Patch - TD Not Given DAILY MARYLIN Nicotine Polacrilex 4 mg 02/04/17 19:59 Nicorette Gum - BC Q2H PRN NICOTINE REPLACEMENT RX Multivit/Folic Acid/Iron 1 tab 02/05/17 10:00 02/18/17 10:17 Vitamins (Sjr) - PO 1 tab DAILY MARYLIN Administration Pseudoephedrine/Triprolidine 1 combo 02/04/17 19:59 Actifed - PO TID PRN NASAL CONGESTION Quetiapine Fumarate 600 mg 02/05/17 22:00 02/17/17 21:33 Seroquel - PO 300 mg HS MARLYIN Administration Ranitidine HCl 150 mg 02/04/17 20:15 02/18/17 10:17 Zantac - PO 150 mg BID MARYLIN Administration Senna 2 tab 02/04/17 22:00 02/17/17 21:33 Senna - PO 2 tab HS MARYLIN Administration Thiamine HCl 100 mg 02/04/17 22:00 02/17/17 21:35 Vitamin B1 - PO 100 mg HS MAYRLIN Administration Medication(s) Change(s): Decrease Seroquel dosage to 300 mg po HS Current Side Effect: No Lab tests ordered: Yes Lab tests reviewed: Yes Provider note:: Patient reports that he has been feeling drowsy, sleepy in the morning after taking Seroquel 600 mg at bedtime. Request that Seroquel dosage be curtailed. Patient reminded of the reason for him to be on Seroquel. He was educated about the risk of resurgence of psychotic symptoms by a reduction in Seroquel dosage. He was instructed to alert medical staff if that has to occur Total face to face time:: 25 Mental Status Exam - Mental Status Exam Alert and Oriented to: Time, Place, Person Cognitive Function: Fair Patient Appearance: Well Groomed Mood: Hopeful, Euthymic Affect: Appropriate Patient Behavior: Cooperative Speech Pattern: Clear Voice Loudness: Normal Thought Process: Intact, Goal Oriented Thought Disorder: Not Present Hallucinations: Denies Suicidal Ideation: Denies Insight/Judgement: Fair Sleep: Fair Appetite: Good Muscle strength/Tone: Normal Gait/Station: Normal Psychiatric Treatment Plan - Problem List (1) Opioid dependence Current Visit: Yes (2) Nicotine dependence Current Visit: Yes (3) Schizoaffective disorder Current Visit: No (4) Asthma Current Visit: Yes Qualifiers: Asthma severity: moderate Asthma complication type: with status asthmaticus (5) GERD (gastroesophageal reflux disease) Current Visit: Yes Qualifiers: Esophagitis presence: without esophagitis Qualified Code(s): K21.9 - Gastro -esophageal reflux disease without esophagitis (6) History of total knee replacement Current Visit: No Initial treatment plan: 1) Discontinue Seroquel 600 mg po HS. 2) Start Seroquel 300 mg po HS. 3) Monitor progress
[2017-02-18] MEDS: THIAMINE HCL 100 MG TABLET (FP) PO SCH (21:40)
[2017-02-18] MEDS: SENNOSIDES 8.6MG TABLET (FP) PO SCH (21:41)
[2017-02-18] MEDS: MONTELUKAST NA 10 MG TABLET PO SCH (21:41)
[2017-02-18] MEDS: DOCUSATE SODIUM 100 MG CAPSULE (FP) PO SCH (21:41)
[2017-02-18] MEDS: QUEtiapine FUMARATE 300 MG TABLET PO SCH (21:41)
[2017-02-19] MEDS ORDERED: METHADONE HCL 40 MG DISPERSABLE TABLET ONE (04:35)
[2017-02-19] MEDS ORDERED: METHADONE HCL 10 MG TABLET ONE (04:35)
[2017-02-19] MEDS: METHADONE 80 MG, METHADONE 30 MG PO SCH (06:24)
[2017-02-19] MEDS: MAG HYDROX/ALH/SMC/DPHA/LIDO 240 ML MOUTHWASH MM SCH ×5 (06:24→23:44)
[2017-02-19] MEDS: AMOXICILLIN 500 MG CAPSULE (FP) PO SCH ×3 (06:24→21:25)
[2017-02-19] MEDS: FERROUS SO4 325 MG TABLET (FP) PO SCH ×3 (07:31→17:11)
[2017-02-19] MEDS: PRENATAL VITAMINS W/ FOLIC ACID TABLET (FP) PO SCH (10:28)
[2017-02-19] MEDS: RANITIDINE HCL 150 MG TABLET (FP) PO SCH ×2 (10:28→21:26)
[2017-02-19] MEDS: NICOTINE 21 MG/24 HOURS TOPICAL PATCH TD SCH (10:28)
[2017-02-19] MEDS: BUDESONIDE/FORMETEROL FUMARATE 80/4.5 mcg INHALER IH SCH ×2 (10:28→21:24)
[2017-02-19] MEDS: DOCUSATE SODIUM 100 MG CAPSULE (FP) PO SCH (21:24)
[2017-02-19] MEDS: THIAMINE HCL 100 MG TABLET (FP) PO SCH (21:25)
[2017-02-19] MEDS: SENNOSIDES 8.6MG TABLET (FP) PO SCH (21:25)
[2017-02-19] MEDS: QUEtiapine FUMARATE 300 MG TABLET PO SCH (21:26)
[2017-02-19] MEDS: MONTELUKAST NA 10 MG TABLET PO SCH (21:26)
[2017-02-20] MEDS: guaiFENesin/D-METHORPHAN HB 10 ML UNIT-DOSE CUPS PO PRN (02:25)
[2017-02-20] MEDS ORDERED: METHADONE HCL 10 MG TABLET ONE (04:33)
[2017-02-20] MEDS ORDERED: METHADONE HCL 40 MG DISPERSABLE TABLET ONE (04:33)
[2017-02-20] MEDS: METHADONE 80 MG, METHADONE 30 MG PO SCH (06:25)
[2017-02-20] MEDS: MAG HYDROX/ALH/SMC/DPHA/LIDO 240 ML MOUTHWASH MM SCH ×3 (06:25→18:19)
[2017-02-20] MEDS: AMOXICILLIN 500 MG CAPSULE (FP) PO SCH ×3 (06:26→21:58)
[2017-02-20] MEDS: FERROUS SO4 325 MG TABLET (FP) PO SCH ×3 (07:16→18:19)
[2017-02-20] MEDS: RANITIDINE HCL 150 MG TABLET (FP) PO SCH ×2 (11:04→21:58)
[2017-02-20] MEDS: ALBUTEROL SO4 18 GM HFA INHALER IH PRN (11:05)
[2017-02-20] MEDS: BUDESONIDE/FORMETEROL FUMARATE 80/4.5 mcg INHALER IH SCH ×2 (11:05→21:59)
[2017-02-20] MEDS ORDERED: PT OWN MED DRAWER 7, Y5N ONE ×2 (11:05→22:01)
[2017-02-20] MEDS: PRENATAL VITAMINS W/ FOLIC ACID TABLET (FP) PO SCH (11:06)
[2017-02-20] MEDS: NICOTINE 21 MG/24 HOURS TOPICAL PATCH TD SCH (11:07)
[2017-02-20] MEDS: THIAMINE HCL 100 MG TABLET (FP) PO SCH (21:57)
[2017-02-20] MEDS: DOCUSATE SODIUM 100 MG CAPSULE (FP) PO SCH (21:58)
[2017-02-20] MEDS: MONTELUKAST NA 10 MG TABLET PO SCH (21:58)
[2017-02-20] MEDS: SENNOSIDES 8.6MG TABLET (FP) PO SCH (21:58)
[2017-02-20] MEDS: QUEtiapine FUMARATE 300 MG TABLET PO SCH (21:59)
[2017-02-21] MEDS: ALBUTEROL SO4 18 GM HFA INHALER IH PRN ×2 (01:00→10:31)
[2017-02-21] MEDS ORDERED: METHADONE HCL 10 MG TABLET ONE (04:46)
[2017-02-21] MEDS ORDERED: METHADONE HCL 40 MG DISPERSABLE TABLET ONE (04:46)
[2017-02-21] MEDS: METHADONE 80 MG, METHADONE 30 MG PO SCH (06:08)
[2017-02-21] MEDS: AMOXICILLIN 500 MG CAPSULE (FP) PO SCH (06:08)
[2017-02-21] MEDS: MAG HYDROX/ALH/SMC/DPHA/LIDO 240 ML MOUTHWASH MM SCH ×5 (06:08→23:41)
[2017-02-21] MEDS: FERROUS SO4 325 MG TABLET (FP) PO SCH ×3 (07:15→17:05)
[2017-02-21] MEDS: PRENATAL VITAMINS W/ FOLIC ACID TABLET (FP) PO SCH (10:29)
[2017-02-21] MEDS: RANITIDINE HCL 150 MG TABLET (FP) PO SCH ×2 (10:29→21:40)
[2017-02-21] MEDS: BUDESONIDE/FORMETEROL FUMARATE 80/4.5 mcg INHALER IH SCH ×2 (10:30→21:41)
[2017-02-21] MEDS: NICOTINE 21 MG/24 HOURS TOPICAL PATCH TD SCH (10:30)
[2017-02-21] MEDS ORDERED: PT OWN MED DRAWER 7, Y5N ONE ×2 (10:31→14:26)
[2017-02-21] MEDS: MONTELUKAST NA 10 MG TABLET PO SCH (21:40)
[2017-02-21] MEDS: SENNOSIDES 8.6MG TABLET (FP) PO SCH (21:40)
[2017-02-21] MEDS: QUEtiapine FUMARATE 300 MG TABLET PO SCH (21:40)
[2017-02-21] MEDS: THIAMINE HCL 100 MG TABLET (FP) PO SCH (21:41)
[2017-02-21] MEDS: DOCUSATE SODIUM 100 MG CAPSULE (FP) PO SCH (21:41)
[2017-02-22] MEDS ORDERED: METHADONE HCL 40 MG DISPERSABLE TABLET ONE (05:21)
[2017-02-22] MEDS ORDERED: METHADONE HCL 10 MG TABLET ONE (05:21)
[2017-02-22] MEDS: METHADONE 80 MG, METHADONE 30 MG PO SCH (06:55)
[2017-02-22] MEDS: MAG HYDROX/ALH/SMC/DPHA/LIDO 240 ML MOUTHWASH MM SCH ×3 (06:57→17:27)
[2017-02-22] MEDS ORDERED: PT OWN MED DRAWER 7, Y5N ONE ×5 (07:01→17:27)
[2017-02-22] MEDS: FERROUS SO4 325 MG TABLET (FP) PO SCH ×3 (07:03→17:27)
[2017-02-22] MEDS: ALBUTEROL SO4 18 GM HFA INHALER IH PRN (10:12)
[2017-02-22] MEDS: BUDESONIDE/FORMETEROL FUMARATE 80/4.5 mcg INHALER IH SCH ×2 (10:12→21:46)
[2017-02-22] MEDS: NICOTINE 21 MG/24 HOURS TOPICAL PATCH TD SCH (10:12)
[2017-02-22] MEDS: PRENATAL VITAMINS W/ FOLIC ACID TABLET (FP) PO SCH (10:13)
[2017-02-22] MEDS: RANITIDINE HCL 150 MG TABLET (FP) PO SCH ×2 (10:13→21:46)
[2017-02-22] MEDS: guaiFENesin/D-METHORPHAN HB 10 ML UNIT-DOSE CUPS PO PRN (16:39)
[2017-02-22] MEDS: SENNOSIDES 8.6MG TABLET (FP) PO SCH (21:45)
[2017-02-22] MEDS: DOCUSATE SODIUM 100 MG CAPSULE (FP) PO SCH (21:45)
[2017-02-22] MEDS: MONTELUKAST NA 10 MG TABLET PO SCH (21:46)
[2017-02-22] MEDS: QUEtiapine FUMARATE 300 MG TABLET PO SCH (21:46)
[2017-02-22] MEDS: THIAMINE HCL 100 MG TABLET (FP) PO SCH (21:46)
[2017-02-23] MEDS: guaiFENesin/D-METHORPHAN HB 10 ML UNIT-DOSE CUPS PO PRN (00:51)
[2017-02-23] MEDS: MAG HYDROX/ALH/SMC/DPHA/LIDO 240 ML MOUTHWASH MM SCH ×5 (00:51→23:36)
[2017-02-23] MEDS ORDERED: METHADONE HCL 40 MG DISPERSABLE TABLET ONE (05:30)
[2017-02-23] MEDS ORDERED: METHADONE HCL 10 MG TABLET ONE (05:30)
[2017-02-23] MEDS ORDERED: PT OWN MED DRAWER 7, Y5N ONE ×3 (05:30→16:33)
[2017-02-23] MEDS: METHADONE 80 MG, METHADONE 30 MG PO SCH (06:58)
[2017-02-23] MEDS: FERROUS SO4 325 MG TABLET (FP) PO SCH ×3 (06:59→17:27)
[2017-02-23] MEDS: NICOTINE 21 MG/24 HOURS TOPICAL PATCH TD SCH (10:18)
[2017-02-23] MEDS: RANITIDINE HCL 150 MG TABLET (FP) PO SCH ×2 (10:18→21:39)
[2017-02-23] MEDS: BUDESONIDE/FORMETEROL FUMARATE 80/4.5 mcg INHALER IH SCH ×2 (10:18→21:40)
[2017-02-23] MEDS: PRENATAL VITAMINS W/ FOLIC ACID TABLET (FP) PO SCH (10:18)
[2017-02-23] MEDS: MAGNESIUM HYDROX 2400MG/30ML ORAL SUSPENSION 30 ML CUP PO PRN (17:28)
[2017-02-23] MEDS: DOCUSATE SODIUM 100 MG CAPSULE (FP) PO SCH (21:38)
[2017-02-23] MEDS: SENNOSIDES 8.6MG TABLET (FP) PO SCH (21:39)
[2017-02-23] MEDS: THIAMINE HCL 100 MG TABLET (FP) PO SCH (21:39)
[2017-02-23] MEDS: MONTELUKAST NA 10 MG TABLET PO SCH (21:39)
[2017-02-23] MEDS: QUEtiapine FUMARATE 300 MG TABLET PO SCH (21:41)
[2017-02-24] MEDS ORDERED: METHADONE HCL 40 MG DISPERSABLE TABLET ONE (04:02)
[2017-02-24] MEDS ORDERED: METHADONE HCL 10 MG TABLET ONE (04:02)
[2017-02-24] MEDS: MAG HYDROX/ALH/SMC/DPHA/LIDO 240 ML MOUTHWASH MM SCH ×4 (06:02→23:40)
[2017-02-24] MEDS: METHADONE 80 MG, METHADONE 30 MG PO SCH (06:02)
--- NOTE | 2017-02-24 06:58 | PN ---
Psychiatric Progress Note Vital Signs: Vital Signs Period Temp Pulse Resp BP Sys/Powell Pulse Ox Last 24 Hr 97.6 F 86 18-20 121/71 Date of Session: 02/24/17 Chief Complaint:: Discharge Note HPI: Patient addressing Opoid Dependence comorbid with Nicotine Dependence and Schizoaffective Disorder ROS: Asthma, S/P Total knee replacement Current Medications: Active Medications Generic Name Dose Route Start Last Admin Trade Name Freq PRN Reason Stop Dose Admin Acetaminophen 650 mg 02/04/17 19:59 02/13/17 19:39 Tylenol - PO 650 mg Q4H PRN Administration PAIN Al Hydroxide/Mg Hydroxide 30 ml 02/04/17 19:59 Mylanta Oral Suspension - PO Q6H PRN DYSPEPSIA Albuterol Sulfate 2 puff 02/06/17 12:23 02/22/17 10:12 Ventolin Hfa Inhaler - IH 2 puff Q4H PRN Administration ASTHMA Budesonide/Formoterol Fumarate 1 puff 02/04/17 22:00 02/23/17 21:40 Symbicort 80/4.5mcg - IH 1 puff BID MARYLIN Administration Docusate Sodium 300 mg 02/14/17 22:00 02/23/17 21:38 Colace - PO 300 mg HS MARYLIN Administration Eucalyptus/Menthol/Phenol/Sorbitol 1 each 02/04/17 19:59 02/08/17 09:58 Cepastat Lozenge - MM 1 each Q4H PRN Administration SORE THROAT Ferrous Sulfate 325 mg 02/14/17 17:30 02/23/17 17:27 Feosol - PO 325 mg TIDCM MARYLIN Administration Guaifenesin 10 ml 02/04/17 19:59 02/23/17 00:51 Robitussin Dm - PO 10 ml Q6H PRN Administration COUGH Lidocaine/Aluminum/Magnesium/Simeth 5 ml 02/10/17 12:35 02/24/17 06:02 Magic Mouthwash *Sjr Formula* - MM 5 ml Q6HPO MARYLIN Administration Loperamide HCl 4 mg 02/04/17 19:59 Imodium - PO Q6H PRN DIARRHEA Magnesium Citrate 300 ml 02/04/17 19:59 Citroma - PO Q48H PRN CONSTIPATION Magnesium Hydroxide 30 ml 02/04/17 19:59 02/23/17 17:28 Milk Of Magnesia - PO 30 ml DAILY PRN Administration CONSTIPATION Methadone HCl 80 mg/ Methadone 110 mg 02/19/17 06:00 02/24/17 06:02 HCl 30 mg PO 02/26/17 05:59 110 mg DAILY@0600 MARYLIN Administration Montelukast Sodium 10 mg 02/04/17 22:00 02/23/17 21:39 Singulair - PO 10 mg HS MARYLIN Administration Naproxen 500 mg 02/04/17 20:05 02/14/17 11:40 Naprosyn - PO 500 mg BID PRN Administration BACK PAIN Nicotine 21 mg 02/05/17 10:00 02/23/17 10:18 Nicoderm Patch - TD Not Given DAILY MARYLIN Nicotine Polacrilex 4 mg 02/04/17 19:59 Nicorette Gum - BC Q2H PRN NICOTINE REPLACEMENT RX Multivit/Folic Acid/Iron 1 tab 02/05/17 10:00 02/23/17 10:18 Vitamins (Sjr) - PO 1 tab DAILY MARYLIN Administration Pseudoephedrine/Triprolidine 1 combo 02/04/17 19:59 Actifed - PO TID PRN NASAL CONGESTION Quetiapine Fumarate 300 mg 02/18/17 22:00 02/23/17 21:41 Seroquel - PO 300 mg HS MARYLIN Administration Ranitidine HCl 150 mg 02/04/17 20:15 02/23/17 21:39 Zantac - PO 150 mg BID MARYLIN Administration Senna 2 tab 02/04/17 22:00 02/23/17 21:39 Senna - PO 2 tab HS MARYLIN Administration Thiamine HCl 100 mg 02/04/17 22:00 02/23/17 21:39 Vitamin B1 - PO 100 mg HS MARYLIN Administration Current Side Effect: No Lab tests ordered: Yes Lab tests reviewed: Yes Provider note:: Patient will complete this program on 02/25/17. He has met his treatment goals and will continue to address his issues in outpatient treatment at [facility]. He responded well to Seroquel 300 mg po HS. Script for 30 dys supply of medication will electronicaly be transmitted to [facility] at [address] [place] [address]. He is stable for discharge on 02/25/17 Total face to face time:: 35 Mental Status Exam - Mental Status Exam Alert and Oriented to: Time, Place, Person Cognitive Function: Fair Patient Appearance: Well Groomed Mood: Hopeful, Euthymic Affect: Appropriate Patient Behavior: Cooperative Speech Pattern: Clear Voice Loudness: Normal Thought Process: Intact, Goal Oriented Thought Disorder: Not Present Hallucinations: Denies Suicidal Ideation: Denies Homicidal Ideation: Denies Insight/Judgement: Fair Sleep: Fair Appetite: Good Muscle strength/Tone: Normal Gait/Station: Normal Psychiatric Treatment Plan - Problem List (1) Opioid dependence Current Visit: Yes (2) Nicotine dependence Current Visit: Yes (3) Schizoaffective disorder Current Visit: No (4) Asthma Current Visit: Yes Qualifiers: Asthma severity: moderate Asthma complication type: with status asthmaticus (5) GERD (gastroesophageal reflux disease) Current Visit: Yes Qualifiers: Esophagitis presence: without esophagitis Qualified Code(s): K21.9 - Gastro -esophageal reflux disease without esophagitis (6) History of total knee replacement Current Visit: No Initial treatment plan: Patient will be discharged tomorrow and referred to [facility] for outpatient treatment
[2017-02-24] MEDS: FERROUS SO4 325 MG TABLET (FP) PO SCH ×3 (07:20→17:03)
[2017-02-24] MEDS: PRENATAL VITAMINS W/ FOLIC ACID TABLET (FP) PO SCH (10:14)
[2017-02-24] MEDS: RANITIDINE HCL 150 MG TABLET (FP) PO SCH ×2 (10:14→21:51)
[2017-02-24] MEDS: BUDESONIDE/FORMETEROL FUMARATE 80/4.5 mcg INHALER IH SCH ×2 (10:14→21:50)
[2017-02-24] MEDS: NICOTINE 21 MG/24 HOURS TOPICAL PATCH TD SCH (10:15)
[2017-02-24] MEDS: QUEtiapine FUMARATE 300 MG TABLET PO SCH (21:51)
[2017-02-24] MEDS: MONTELUKAST NA 10 MG TABLET PO SCH (21:51)
[2017-02-24] MEDS: THIAMINE HCL 100 MG TABLET (FP) PO SCH (21:51)
[2017-02-24] MEDS: DOCUSATE SODIUM 100 MG CAPSULE (FP) PO SCH (21:51)
[2017-02-24] MEDS: SENNOSIDES 8.6MG TABLET (FP) PO SCH (21:51)
[2017-02-24] MEDS: TOLNAFTATE 1% CREAM 15 GM TUBE TP SCH (21:53)
[2017-02-25] MEDS ORDERED: METHADONE HCL 10 MG TABLET ONE (04:02)
[2017-02-25] MEDS ORDERED: METHADONE HCL 40 MG DISPERSABLE TABLET ONE (04:02)
[2017-02-25] MEDS: MAG HYDROX/ALH/SMC/DPHA/LIDO 240 ML MOUTHWASH MM SCH ×3 (05:58→17:22)
[2017-02-25] MEDS: METHADONE 80 MG, METHADONE 30 MG PO SCH (05:59)
[2017-02-25] MEDS: FERROUS SO4 325 MG TABLET (FP) PO SCH ×3 (07:10→17:21)
--- NOTE | 2017-02-25 09:06 | PN ---
Psychiatric Progress Note Vital Signs: Vital Signs Period Temp Pulse Resp BP Sys/Powell Pulse Ox Last 24 Hr 97.6 F 86 20-20 118/78 Date of Session: 02/25/17 Chief Complaint:: Discharge Note HPI: Patient addressing Opoid Dependence comorbid with Nicotine Dependence and Schizoaffective Disorde ROS: Asthma, S/P Total knee replacement Current Medications: Active Medications Generic Name Dose Route Start Last Admin Trade Name Freq PRN Reason Stop Dose Admin Acetaminophen 650 mg 02/04/17 19:59 02/13/17 19:39 Tylenol - PO 650 mg Q4H PRN Administration PAIN Al Hydroxide/Mg Hydroxide 30 ml 02/04/17 19:59 Mylanta Oral Suspension - PO Q6H PRN DYSPEPSIA Albuterol Sulfate 2 puff 02/06/17 12:23 02/22/17 10:12 Ventolin Hfa Inhaler - IH 2 puff Q4H PRN Administration ASTHMA Budesonide/Formoterol Fumarate 1 puff 02/04/17 22:00 02/24/17 21:50 Symbicort 80/4.5mcg - IH 1 puff BID MARYLIN Administration Docusate Sodium 300 mg 02/14/17 22:00 02/24/17 21:51 Colace - PO Not Given HS MARYLIN Eucalyptus/Menthol/Phenol/Sorbitol 1 each 02/04/17 19:59 02/08/17 09:58 Cepastat Lozenge - MM 1 each Q4H PRN Administration SORE THROAT Ferrous Sulfate 325 mg 02/14/17 17:30 02/25/17 07:10 Feosol - PO 325 mg TIDCM MARYLIN Administration Guaifenesin 10 ml 02/04/17 19:59 02/23/17 00:51 Robitussin Dm - PO 10 ml Q6H PRN Administration COUGH Lidocaine/Aluminum/Magnesium/Simeth 5 ml 02/10/17 12:35 02/25/17 05:58 Magic Mouthwash *Sjr Formula* - MM 5 ml Q6HPO MARYLIN Administration Loperamide HCl 4 mg 02/04/17 19:59 Imodium - PO Q6H PRN DIARRHEA Magnesium Citrate 300 ml 02/04/17 19:59 Citroma - PO Q48H PRN CONSTIPATION Magnesium Hydroxide 30 ml 02/04/17 19:59 02/23/17 17:28 Milk Of Magnesia - PO 30 ml DAILY PRN Administration CONSTIPATION Methadone HCl 80 mg/ Methadone 110 mg 02/26/17 06:00 HCl 30 mg PO 03/05/17 05:59 DAILY@0600 MARYLIN Montelukast Sodium 10 mg 02/04/17 22:00 02/24/17 21:51 Singulair - PO 10 mg HS MARYLIN Administration Naproxen 500 mg 02/04/17 20:05 02/14/17 11:40 Naprosyn - PO 500 mg BID PRN Administration BACK PAIN Nicotine 21 mg 02/05/17 10:00 02/24/17 10:15 Nicoderm Patch - TD Not Given DAILY MARYLIN Nicotine Polacrilex 4 mg 02/04/17 19:59 Nicorette Gum - BC Q2H PRN NICOTINE REPLACEMENT RX Multivit/Folic Acid/Iron 1 tab 02/05/17 10:00 02/24/17 10:14 Vitamins (Sjr) - PO 1 tab DAILY MARYLIN Administration Pseudoephedrine/Triprolidine 1 combo 02/04/17 19:59 Actifed - PO TID PRN NASAL CONGESTION Quetiapine Fumarate 300 mg 02/18/17 22:00 02/24/17 21:51 Seroquel - PO 300 mg HS MARYLIN Administration Ranitidine HCl 150 mg 02/04/17 20:15 02/24/17 21:51 Zantac - PO 150 mg BID MARYLIN Administration Senna 2 tab 02/04/17 22:00 02/24/17 21:51 Senna - PO 2 tab HS MARYLIN Administration Thiamine HCl 100 mg 02/04/17 22:00 02/24/17 21:51 Vitamin B1 - PO 100 mg HS MARYLIN Administration Tolnaftate 1 applic 02/24/17 22:00 02/24/17 21:53 Tinactin 1% Cream - TP 1 applic BID MARYLIN Administration Provider note:: Patient will complete this program on 02/25/17. He has met his treatment goals and will continue to address his issues in outpatient treatment at [facility]. Told sports book writer that from his participation in this program, he has learned the importance of making meetings and having a sponsor. He responded well to Seroquel 300 mg po HS. Script for 30 days supply of medication will electronicaly be transmitted to [facility] at [address] [place], [place] [id number]. He is stable for discharge on 02/25/17 Total face to face time:: 35 Mental Status Exam - Mental Status Exam Alert and Oriented to: Time, Place, Person Cognitive Function: Fair Patient Appearance: Well Groomed Mood: Hopeful, Euthymic Affect: Appropriate Patient Behavior: Cooperative Speech Pattern: Clear Voice Loudness: Normal Thought Process: Intact, Goal Oriented Thought Disorder: Not Present Hallucinations: Denies Suicidal Ideation: Denies Homicidal Ideation: Denies Insight/Judgement: Fair Sleep: Fair Appetite: Good Muscle strength/Tone: Normal Gait/Station: Normal Psychiatric Treatment Plan - Problem List (1) Opioid dependence Current Visit: Yes (2) Nicotine dependence Current Visit: Yes (3) Schizoaffective disorder Current Visit: No (4) Asthma Current Visit: Yes Qualifiers: Asthma severity: moderate Asthma complication type: with status asthmaticus (5) GERD (gastroesophageal reflux disease) Current Visit: Yes Qualifiers: Esophagitis presence: without esophagitis Qualified Code(s): K21.9 - Gastro -esophageal reflux disease without esophagitis (6) History of total knee replacement Current Visit: No Initial treatment plan: Patient will be discharged tomorrow and referred to [facility] for outpatient treatment
[2017-02-25] MEDS: BUDESONIDE/FORMETEROL FUMARATE 80/4.5 mcg INHALER IH SCH ×2 (10:26→21:16)
[2017-02-25] MEDS ORDERED: PT OWN MED DRAWER 7, Y5N ONE ×2 (10:27→12:21)
[2017-02-25] MEDS: RANITIDINE HCL 150 MG TABLET (FP) PO SCH ×2 (10:27→21:13)
[2017-02-25] MEDS: TOLNAFTATE 1% CREAM 15 GM TUBE TP SCH ×2 (10:27→21:16)
[2017-02-25] MEDS: ALBUTEROL SO4 18 GM HFA INHALER IH PRN (10:28)
[2017-02-25] MEDS: PRENATAL VITAMINS W/ FOLIC ACID TABLET (FP) PO SCH (10:39)
[2017-02-25] MEDS: NICOTINE 21 MG/24 HOURS TOPICAL PATCH TD SCH (10:39)
[2017-02-25] MEDS: THIAMINE HCL 100 MG TABLET (FP) PO SCH (21:13)
[2017-02-25] MEDS: MONTELUKAST NA 10 MG TABLET PO SCH (21:13)
[2017-02-25] MEDS: SENNOSIDES 8.6MG TABLET (FP) PO SCH (21:13)
[2017-02-25] MEDS: QUEtiapine FUMARATE 300 MG TABLET PO SCH (21:13)
[2017-02-25] MEDS: DOCUSATE SODIUM 100 MG CAPSULE (FP) PO SCH (21:14)
[2017-02-26] MEDS ORDERED: ALBUTEROL SO4 2.5/IPRATROPIUM 0.5 INH SOL 3 ML VIAL.NEB. NEB PRN (01:05)
[2017-02-26] MEDS ORDERED: METHADONE HCL 10 MG TABLET ONE (04:11)
[2017-02-26] MEDS ORDERED: METHADONE HCL 40 MG DISPERSABLE TABLET ONE (04:11)
[2017-02-26] MEDS ORDERED: METHADONE 80 MG, METHADONE 30 MG PO SCH (06:00)
[2017-02-26] MEDS: MAG HYDROX/ALH/SMC/DPHA/LIDO 240 ML MOUTHWASH MM SCH ×2 (06:01)
[2017-02-26 06:53] VITALS: BP 121/82; PULSE 96; TEMP 98
[2017-02-26] MEDS: FERROUS SO4 325 MG TABLET (FP) PO SCH (07:12)
[2017-02-26] MEDS ORDERED: PT OWN MED DRAWER 7, Y5N ONE (08:59)
[2017-02-26] MEDS: TOLNAFTATE 1% CREAM 15 GM TUBE TP SCH (09:51)
[2017-02-26] MEDS: BUDESONIDE/FORMETEROL FUMARATE 80/4.5 mcg INHALER IH SCH (09:51)
[2017-02-26] MEDS: PRENATAL VITAMINS W/ FOLIC ACID TABLET (FP) PO SCH (09:51)
[2017-02-26] MEDS: RANITIDINE HCL 150 MG TABLET (FP) PO SCH (09:51)
== END 2017-02-26 10:05 | disposition home or self-care (01) | DRG 772 ==
LOC: YASAS 16:22 → Y3W 19:11
PROVIDERS: ADMIT Psychiatry & Neurology Psychiatry; ATTEND Psychiatry & Neurology Psychiatry
PROC: HZ42ZZZ Group Counseling for Substance Abuse Treatment, Cognitive-Behavioral (ICD-10-PCS; principal; 2017-02-04)
DX: F11.20 Opioid dependence, uncomplicated (principal); F17.210 Nicotine dependence, cigarettes, uncomplicated; F25.9 Schizoaffective disorder, unspecified; J45.22 Mild intermittent asthma with status asthmaticus; E66.9 Obesity, unspecified; K21.9 Gastro-esophageal reflux disease without esophagitis; E88.09 Other disorders of plasma-protein metabolism, not elsewhere classified; D53.9 Nutritional anemia, unspecified; J02.0 Streptococcal pharyngitis; K59.01 Slow transit constipation; R26.2 Difficulty in walking, not elsewhere classified; Z99.89 Dependence on other enabling machines and devices; Z68.42 Body mass index [BMI] 45.0-49.9, adult; Z87.438 Personal history of other diseases of male genital organs; Z96.653 Presence of artificial knee joint, bilateral; Z91.5 Personal history of self-harm
CPT/HCPCS: 36415; 80053; 81003; 81015; 85027; 86593; 86780; 87070; 87077; 93005; 93010; 94640